=== PATIENT | female | born 2000 | race Two or more races ===

== ENCOUNTER 2023-05-17 14:58 | Inpatient (IN) | payer OTHER ==
[~2023-05-17] VITALS: Ht 172.7 cm; Wt 75.3 kg
[2023-05-29] MEDS ORDERED: PRENATABS RX T1 EACH PO (17:02)
[2023-05-29] MEDS ORDERED: VAGINAL CREAM1 EACH (17:02)
== END 2023-06-01 13:31 | disposition home or self-care (01) | DRG 807 ==
LOC: LDR 05-29 16:16 → OB/GYN 05-30 13:12 → LDR 06-02 08:30 → SURG 06-02 08:30
PROVIDERS: ADMIT Obstetrics & Gynecology Gynecology; ATTEND Obstetrics & Gynecology Gynecology
PROC: 4A1HXCZ Monitoring of Products of Conception, Cardiac Rate, External Approach (ICD-10-PCS; 2023-05-29)
PROC: 10E0XZZ Delivery of Products of Conception, External Approach (ICD-10-PCS; principal; 2023-05-30)
PROC: 0KQM0ZZ Repair Perineum Muscle, Open Approach (ICD-10-PCS; 2023-05-30)
DX: O70.1 Second degree perineal laceration during delivery (principal); Z37.0 Single live birth; Z3A.39 39 weeks gestation of pregnancy; Z20.822 Contact with and (suspected) exposure to COVID-19